=== PATIENT | female | born 1950 | race Caucasian/White ===

== ENCOUNTER → 2018-03-13 | Outpatient (CLI) | payer MEDICARE ==
[~2018-03-13] MED LIST: ABILIFY5 MG PO; AMLODIPINE BESY10 MG PO; CENTRUM SILVER1 EAC3 PO; CITRACAL + D E1 EACH PO; CLONAZEPAM1 MG PO; CYMBALTA60 MG PO; FENOFIBRATE134 MG PO; FISH OIL OMEGA1 EACH PO; FLAGYL250 MG PO; FUROSEMIDE20 MG PO; GLIMEPIRIDE4 MG PO; HUMALOG100 UNIT/1 SC; IOPAMIDOL 370 MG/ML 200 ML INFUS..BTL INJ ONE; LANTUS 3ML100 UNITS/ SC; LEVAQUIN500 MG PO; LEVOTHYROXINE50 MCG PO; LISINOPRIL-HCT1 EAC1 PO; LYRICA75 MG PO; METFORMIN HCL1000 M1 PO; METOPROLOL SUC100 MG PO; NORCO 10-325 T1 EACH PO; PRILOSEC OTC20 MG PO; PROBIOTIC COMP1 EACH PO; SODIUM CHLORIDE 0.9% 50ML 50 ML ONE; TIZANIDINE HCL4 M1 PO; TRAZODONE HCL100 MG PO; VICTOZA 2-0.6 MG/0.1 SC; XARELTO20 MG PO
[2018-03-13 09:10] LABS: BLOOD UREA NITROGEN 14 mg/dL (7-26); BUN/CREATININE RATIO 17 (6-25); CREATININE, SERUM 0.83 mg/dL (0.57-1.11); EST GLOMERULAR FILTRATION RATE > 60 ML/MIN (60-)
--- NOTE | 2018-03-13 14:21 | Diagnostic Imaging Report ---
PROCEDURE: CT ABDOMEN AND PELVIS WITH CONTRAST TECHNIQUE: The abdomen and pelvis were scanned utilizing a multidetector helical scanner from the diaphragm to the lesser trochanter after the IV administration of 100 cc Isovue 370 and the oral demonstration of water. Coronal and sagittal multiplanar reformations were obtained. COMPARISON: 04/04/2017. INDICATIONS: ABDOMEN PAIN FINDINGS: LOWER THORAX: Unchanged mild right hemidiaphragmatic elevation with atelectasis of the lower lobe.. HEPATOBILIARY: Hepatic parenchyma is diffusely hypoattenuating compatible with steatosis. No focal hepatic lesion or intrahepatic biliary ductal dilatation. Small radiopaque gallstones are again noted. No gallbladder wall thickening or pericholecystic inflammation. SPLEEN: Multiple calcified splenic granulomata. No splenomegaly. PANCREAS: No focal masses or ductal dilatation. ADRENALS: No adrenal nodules. KIDNEYS/URETERS: Subcentimeter hypoattenuating lesions in the left kidney are too small to further characterize but likely represent small cysts. No hydronephrosis or calculi. PELVIC ORGANS/BLADDER: Urinary bladder is unremarkable. Uterus and ovaries are nonvisualized. No adnexal mass. PERITONEUM / RETROPERITONEUM: No ascites or pneumoperitoneum. Evaluation of the pelvis is limited secondary to beam hardening artifact from patient contact with the scanning gantry due to body habitus. LYMPH NODES: No pelvic sidewall, retroperitoneal, or mesenteric lymphadenopathy. VESSELS: Abdominal aorta, major branch vessels, and iliac arterial systems are patent with mild atherosclerotic calcification. No aneurysmal dilatation. GI TRACT: The large bowel shows no evidence of distention or wall thickening. Gas and fecal material are noted throughout. The appendix is not definitively identified and may have been resected. No right lower quadrant inflammatory change. No small bowel dilatation to suggest obstruction. BONES AND SOFT TISSUES: No osseous destructive lesions. Multilevel degenerative disc changes and facet arthropathy of the lumbar spine. Soft tissue calcified injection granulomata along the right flank. Small fat-containing umbilical hernia. IMPRESSION: No acute intra-abdominal or pelvic CT abnormalities. Cholelithiasis without findings of acute cholecystitis. Hepatic steatosis. Dictated by: Davion Gates M.D. on 03/13/2018 at 10:47 Electronically approved by: Davion Gates M.D. on 03/13/2018 at 10:47
== END ==
LOC: CT 07:54
PROVIDERS: ATTEND Family Medicine
DX: R10.84 Generalized abdominal pain (principal)
CPT/HCPCS: 36415; 74177; 82565; 84520; Q9967

== ENCOUNTER 2019-04-16 13:39 | Emergency (ER) | payer MEDICARE ==
[~2019-04-16] VITALS: Ht 172.7 cm; Wt 158.8 kg
[~2019-04-16 13:39] MED LIST changes: -IOPAMIDOL 370 MG/ML 200 ML INFUS..BTL INJ ONE; -SODIUM CHLORIDE 0.9% 50ML 50 ML ONE
--- OUTSIDE RECORDS SUMMARY | 2019-04-16 13:43 | XMS REPORT | Clinical Summary ---
Author Author [facility] Address Unknown Phone Unavailable Care Team Providers Care Director [employer] Name Role Phone Flash Davis PCP Allergies Comments Active Allergy Reactions Severity Noted Date Penicillin G 02/23/2016 Benzathin,Procain Varenicline 02/23/2016 Medications End Date Status Medication Sig Dispensed Refills Start Date Active metoprolol (TOPROL-XL) Take 100 mg 0 100 MG 24 hr tablet by mouth daily. Active ARIPiprazole (ABILIFY) 2 Take 2 mg by 0 MG tablet mouth daily. Active metFORMIN (GLUCOPHAGE) Take 1,000 mg 0 1000 MG tablet by mouth 2 (two) times daily with breakfast and dinner. Active DULoxetine (CYMBALTA) 60 Take 60 mg by 0 MG capsule mouth daily. Active amLODIPine (NORVASC) 10 Take 10 mg by 0 MG tablet mouth daily. Active lisinopril-hydrochlorothi Take 1 tablet 0 azide by mouth (PRINZIDE,ZESTORETIC) daily. 20-25 mg per tablet Active fenofibrate (TRICOR) 145 Take 134 mg 0 MG tablet by mouth daily . Active pregabalin (LYRICA) 100 Take 100 mg 0 MG capsule by mouth 2 (two) times daily. Active traZODone (DESYREL) 100 Take 100 mg 0 MG tablet by mouth nightly. Active clonazePAM (KLONOPIN) 1 Take 1 mg by 0 MG tablet mouth 2 (two) times daily as needed for Anxiety. Active HYDROcodone-acetaminophen Take 1 tablet 0 (NORCO 10-325) 10-325 mg by mouth per tablet every 6 (six) hours as needed for Pain. Active TiZANidine (ZANAFLEX) 4 Take 4 mg by 0 MG capsule mouth 3 (three) times daily. Active insulin lispro (HUMALOG) Inject 0 100 unit/mL injection subcutaneousl y 3 (three) times daily before meals. Active insulin glargine (LANTUS) Inject 0 100 unit/mL injection subcutaneousl y nightly Use as directed . Active liraglutide 0.6 mg/0.1 mL Inject 0 (18 mg/3 mL) PnIj subcutaneousl y. Active furosemide (LASIX) 20 MG Take 20 mg by 0 tablet mouth 2 (two) times daily. Active rivaroxaban (XARELTO) 20 Take by mouth 0 mg Tab tablet daily. Active levothyroxine (SYNTHROID, Take 200 mcg 0 LEVOTHROID) 200 MCG by mouth tablet Every morning on an empty stomach. Active lidocaine (LIDODERM) 5 % Place 1 patch 0 patch onto the skin daily Remove & Discard patch within 12 hours or as directed by MD . Active Problems Problem Noted Date A-fib 02/23/2016 On continuous oral anticoagulation 02/23/2016 Chest pain 02/23/2016 DMII (diabetes mellitus, type 2) 02/23/2016 HTN (hypertension) 02/23/2016 Hypertriglyceridemia 02/23/2016 Family history of early CAD 02/23/2016 Depression 02/23/2016 Hypothyroidism 02/23/2016 Former smoker 02/23/2016 RAFA on CPAP 02/23/2016 Leg edema 02/23/2016 Morbid obesity 02/23/2016 GERD (gastroesophageal reflux disease) 02/23/2016 Degenerative joint disease 02/23/2016 Abnormal nuclear stress test 02/23/2016 Family History Medical History Relation Name Comments Cancer Father Hyperlipidemia Father Hypertension Father Depression Mother Diabetes Mother Relation Name Status Comments Father Mother Social History Date Tobacco Use Types Packs/Day Years Used Quit: 11/25/2012 Former Smoker Alcohol Use Drinks/Week oz/Week Comments Yes 1 Glasses of 0.6 occasionally wine Sex Assigned at Date Recorded Not on file Industry Job Start Date Occupation Not on file Not on file Not on file Travel End Travel History Travel Start No recent travel history available. Last Filed Vital Signs Not on file Plan of Treatment Not on file Results Not on fileafter 2018 Insurance Payer Benefit Subscriber ID Type Phone Address Plan / Group CARE IMPROVEMENT MEDICARE CARE xxxxxxxxx [facility]GD [facility] PL[facility] Advance Directives For more information, please contact: [address] [address] Date Inactivated Comments Code Status Date Activated 02/24/2016 8:50 PM Full Code 02/24/2016 10:08 AM This code status was determined by: Patient
--- OUTSIDE RECORDS SUMMARY | 2019-04-16 13:44 | XMS REPORT | Summary of Care ---
Author Author [facility] Organization [facility] Address Unknown Phone Unavailable Encounter JENNIFER Palacios(DAWIT) [id number] Date(s): 06/08/18 - 06/08/18 [facility] [address] [address]- [phone] Encounter Diagnosis Intervertebral disc disorders with radiculopathy, lumbar region (Final) - 06/25/18 Other spondylosis with radiculopathy, lumbosacral region (Final) - Other specific arthropathies, not elsewhere classified, other specified site (Final) - Type 2 diabetes mellitus without complications (Final) - Personal history of nicotine dependence (Final) - care home (current) use of insulin (Final) - Gastro-esophageal reflux disease without esophagitis (Final) - Obstructive sleep apnea (adult) (pediatric) (Final) - Essential (primary) hypertension (Final) - Unspecified atrial fibrillation (Final) - Hypothyroidism, unspecified (Final) - Discharge Disposition: Home or Self Care Attending Physician: Jarek Swenson MD Referring Physician: Jarek Swenson MD Vital Signs 1 2 3 Most recent to oldest [Reference Range]: 170.18 cm (06/05/18 1:48 PM) Height 124/67 mmHg (06/08/18 12:15 PM) 124/67 mmHg (06/08/18 12:00 PM) 139/77 mmHg (06/08/18 11:45 AM) Blood Pressure [90-140/60-90 mmHg] 20 BRMIN (06/08/18 12:15 PM) 18 BRMIN (06/08/18 12:00 PM) 16 BRMIN (06/08/18 11:45 AM) Respiratory Rate [14-20 BRMIN] 160 kg (06/05/18 1:48 PM) Weight 55.25 m2 (06/05/18 1:48 PM) Body Mass Index Problem List Condition Effective Dates Status Health Status Informant Afib(Confirmed) 12/2015 Active Diabetes(Confirmed) Active Hyperlipidemia(Confi Active rmed) Hypertension(Confirm Active ed) Hypothyroid(Confirme Active d) Obesity(Confirmed) Active Scoliosis(Confirmed) Active Sleep Active apnea(Confirmed) Allergies, Adverse Reactions, Alerts Substance Reaction Severity Status Bicillin L-A rash Active Chantix agitated Active Medications acetaminophen-10 mg/mL INTRAVENOUS solution 1,000 mg, 100 mL, Route: IV, Drug form: INJ, ONCE, Dosing Weight 160, kg, Start date: 06/08/18 11:46:00 STEM FRAZER, Stop date: 06/08/18 11:46:00 STEM FRAZER Notes: Infuse over 15 minutesDo not exceed 4gm/day of acetaminophen MEDICAT ION WASTE Product Size: 1000 mgProduct Wasted: ___ mg Start Date: 06/08/18 Stop Date: 06/19/18 Status: Discontinued acetaminophen-hydrocodone 325 mg-10 mg oral tablet 1 tab, Route: PO, Drug Form: TAB, Dosing Weight 160, kg, Q4H, PRN Pain Score 4-6 , Start date: 06/08/18 11:46:00 STEM FRAZER, Duration: 30 day, Stop date: 07/08/18 11:45 :00 STEM FRAZER Notes: Do not exceed 4gm/day of acetaminophen. (Same as: [place] 325/10) Start Date: 06/08/18 Stop Date: 06/09/18 Status: Discontinued hydromorphone 1 mg, 0.5 mL, Route: IVP, Drug form: INJ, PRN, Dosing Weight 160, kg, PRN Pain S core 7-10, Start date: 06/08/18 11:46:00 STEM FRAZER, Duration: 3 doses or times, Stop d ate: 06/09/18 0:00:00 STEM FRAZER Notes: Same as Dilaudid Start Date: 06/08/18 Stop Date: 06/09/18 Status: Completed hydromorphone 0.5 mg, 0.25 mL, Route: IVP, Drug form: INJ, PRN, Dosing Weight 160, kg, PRN Michael n Score 4-6, Start date: 06/08/18 11:46:00 STEM FRAZER, Duration: 6 doses or times, Stop date: 06/09/18 0:00:00 STEM FRAZER Notes: Same as Dilaudid Start Date: 06/08/18 Stop Date: 06/09/18 Status: Completed Lactated Ringers IV 1,000 mL 1,000 mL, Rate: 125 ml/hr, Infuse over: 8 hr, Route: IV, Dosing Weight 160 kg, T otal Volume: 1,000, Start date: 06/08/18 11:46:00 STEM FRAZER, Duration: 30 day, Stop da te: 07/08/18 11:45:00 STEM FRAZER, 2.8, m2 Start Date: 06/08/18 Stop Date: 06/08/18 Status: Discontinued Lactated Ringers IV 1,000 mL 1,000 mL, Rate: 125 ml/hr, Infuse over: 8 hr, Route: IV, Dosing Weight 160 kg, T otal Volume: 1,000, Start date: 06/08/18 10:47:00 STEM FRAZER, Duration: 30 day, Stop da te: 07/08/18 10:46:00 STEM FRAZER, 2.8, m2 Start Date: 06/08/18 Stop Date: 06/09/18 Status: Discontinued ondansetron 4 mg, 2 mL, Route: IVP, Drug form: INJ, ONCE, Dosing Weight 160, kg, PRN Nausea & Vomiting, Start date: 06/08/18 11:46:00 STEM FRAZER Notes: (Same as: Miki) MEDICATION WASTE Product Size: 4 mgProduct Was jef: ___ mg Start Date: 06/08/18 Stop Date: 06/09/18 Status: Discontinued Saline Flush 0.9% 10 ml, Route: IVP, Drug Form: INJ, Dosing Weight 160, kg, PRN, PRN Line Flush, S tart date: 06/08/18 10:47:00 STEM FRAZER, Duration: 30 day, Stop date: 07/08/18 10:46:00 STEM FRAZER Notes: Same as: BD Posiflush Sterile Start Date: 06/08/18 Stop Date: 06/09/18 Status: Discontinued Xarelto 20 mg oral tablet 20 mg=1 tab, PO, QPM, # 30 tab, 3 Refill(s) Start Date: 06/08/18 Status: Ordered Results No data available for this section Immunizations No data available for this section Procedures Procedure Date Related Diagnosis Body Site Status Repair of nerve1 2005 Completed Total knee replacement2 2004 Completed Total knee replacement3 2003 Completed Osteotomy and discectomy of cervical spine by 2000 Completed anterior approach Hysterectomy4 1984 Completed Bunionectomy5 Completed 1right first finger 2right 3left 4Partial 5left Social History Social History Type Response Substance Abuse Use: Current. Type: Marijuana. Recreational Drug Route: Inhaled. Amount: LAST TIME USED 06-07-2018. Frequency: Daily. Exercise 1 Alcohol Current, Type Wine. Frequency: 1-2 times per month. Smoking Status Former smoker; Type: Cigarettes; Exposure to Tobacco Smoke None; Cigarette Smoking Last 365 Days No; Reg Smoking Cessation Counseling No; Tobacco use per day: 20; Started at age: 20.0; 2 entered on: 06/08/18 1none 2quit 3 years Assessment and Plan Extracted from: Title: Clinical Document Author: Jarek Swenson MD Date: 06/08/18 HISTORY AND PHYSICAL EXAMINATION/REVIEW OF SYSTEMS Present Complaint:_bilateral low back buttock and leg pain Past History: chronic Alcohol Details: Current, Type Wine. Frequency: 1-2 times per month. Exercise Comment(s): none Tobacco Details: Use: Former smoker. Type: Cigarettes. 20 per day. Started age 20.0 Years. Tobacco smoke exposure: None. Did the Patient Smoke Cigarettes Anytime During the Last 365 Days? No. Cessation Counseling Provided? No.; Comment(s): quit 3 years Substance Abuse Details: Use: Current. Type: Marijuana. Amount: Last time used 12/17/2015. Frequency: Daily. Repair of nerve: 2006 Total knee replacement: 2004 Total knee replacement: 2003 Osteotomy and discectomy of cervical spine by anterior approach: 2000 Hysterectomy: 1984 Bunionectomy No qualifying data available Father: High blood pressure Mother: Type 2 diabetes mellitus Grandparent: Breast cancer; Heart disease Allergies Allergies (2) ActiveReaction Bicillin L-Perry Chantixagitated Home Medications: Home Medications (26) Active acetaminophen-hydrocodone 325 mg-10 mg oral tablet 1 tab, PO, Q6H amLODIPine 10 mg oral tablet 10 mg=1 tab, PO, Daily Centrum Silver Women's 1 tab, PO, Daily Citracal Maximum + D 2 tab, PO, BID clonazePAM 0.75 mg, PO, Bedtime clonazePAM 1 mg oral tablet 1 mg=1 tab, PO, QAM DULoxetine 60 mg oral delayed release capsule 120 mg=2 cap, PO, Daily fenofibrate 134 mg oral capsule 134 mg=1 cap, PO, Daily Fish Oil 1000 mg oral capsule 1,000 mg=1 cap, PO, TID FLUoxetine 20 mg oral capsule 20 mg=1 cap, PO, Daily furosemide 20 mg oral tablet 20 mg=1 tab, PRN, PO, Daily hydrochlorothiazide-lisinopril 25 mg-20 mg oral tablet 1 tab, PO, Daily Lantus 25 unit, SUB-Q, BID levothyroxine 200 mcg (0.2 mg) oral tablet 200 microgram=1 tab, PO, Daily Lidoderm 5% topical film (patch) 1 patch, TOP, Daily Lyrica 100 mg oral capsule 100 mg=1 cap, PO, BID metFORMIN 1000 mg oral tablet 1,000 mg=1 tab, PO, BID metoprolol 100 mg oral tablet, extended release 100 mg=1 tab, PO, Daily NovoLOG 0.5 unit, SUB-Q, TID-Before Meals Prilosec 20 mg oral delayed release capsule 20 mg=1 cap, PO, Daily Probiotic Formula oral capsule 1 cap, PO, Daily tizanidine 4 mg oral capsule 8 mg=2 cap, PO, QID trazodone 100 mg oral tablet 100 mg=1 tab, PO, Bedtime Victoza 18 mg/3 mL subcutaneous injection , SUB-Q, Daily Xarelto 20 mg oral tablet 20 mg=1 tab, PO, QPM Xarelto 20 mg oral tablet 20 mg=1 tab, PO, QPM Vitals Signs: No qualifying data available General(x_Alert, Oriented, No Acute Distress):_ Pertinent Lab:___none HEENT (_x no mass or deformity):_ Torso/Breast (_ no mass or deformity):_ deferred Heart (x_ normal Rhythm, no murmur or gallop):_ Lungs (_x Clear no auscultation):_ Abdomen (no mass or tenderness):_deferred Pelvic/Rectal (no mass or tenderness):_deferred Extremities (no edema or tenderness):_deferred Neurological (_ intact):_deferred Impressions: _ Diagnosis: -lumbar radiculopathy 44584 Treatment plan:_ bilateral L4-S1 TFESI
--- OUTSIDE RECORDS SUMMARY | 2019-04-16 13:44 | XMS REPORT | Summary of Care ---
Author Author [facility] Organization [facility] Address Unknown Phone Unavailable Encounter JENNIFER Palacios(DAWIT) [id number] Date(s): 04/25/18 - 04/25/18 [facility] [address] [address]- [phone] Encounter Diagnosis Type 2 diabetes mellitus without complications (Final) - Major depressive disorder, single episode, unspecified (Final) - Morbid (severe) obesity due to excess calories (Final) - Personal history of nicotine dependence (Final) - long term care administrator (current) use of anticoagulants (Final) - long term care administrator (current) use of insulin (Final) - long term care administrator (current) use of aspirin (Final) - Other half-way (current) drug therapy (Final) - Body mass index (BMI) 50-59.9, adult (Final) - Intervertebral disc disorders with radiculopathy, lumbar region (Final) - 05/04/18 Spondylosis without myelopathy or radiculopathy, lumbosacral region (Final) - Essential (primary) hypertension (Final) - Hyperlipidemia, unspecified (Final) - Obstructive sleep apnea (adult) (pediatric) (Final) - Unspecified atrial fibrillation (Final) - Hypothyroidism, unspecified (Final) - Discharge Disposition: Home or Self Care Attending Physician: Jarek Swenson MD Referring Physician: Jarek Swenson MD Vital Signs 1 2 3 Most recent to oldest [Reference Range]: 170.18 cm (04/20/18 10:17 AM) Height 121/56 mmHg (04/25/18 10:31 AM) 120/54 mmHg (04/25/18 10:16 AM) 121/87 mmHg (04/25/18 10:01 AM) Blood Pressure [90-140/60-90 mmHg] 16 BRMIN (04/25/18 10:31 AM) 15 BRMIN (04/25/18 10:16 AM) 15 BRMIN (04/25/18 10:01 AM) Respiratory Rate [14-20 BRMIN] 160 kg (04/20/18 10:17 AM) Weight 55.25 m2 (04/20/18 10:17 AM) Body Mass Index Problem List Condition Effective [...] ONCE, Dosing Weight 160, kg, Start date: 04/25/18 10:20:00 CDT, Stop date: 04/25/18 10:20:00 CDT Notes: Infuse over 15 minutesDo not exceed 4gm/day of acetaminophen MEDICAT ION WASTE Product Size: 1000 mgProduct Wasted: ___ mg Start Date: 04/25/18 Stop Date: 05/06/18 Status: Discontinued acetaminophen-hydrocodone 325 mg-10 mg oral tablet 1 tab, Route: PO, Drug Form: TAB, Dosing Weight 160, kg, Q4H, PRN Pain Score 4-6 , Start date: 04/25/18 10:20:00 CDT, Duration: 30 day, Stop date: 05/25/18 10:19 :00 CDT Notes: Do not exceed 4gm/day of acetaminophen. (Same as: [place] 325/10) Start Date: 04/25/18 Stop Date: 04/26/18 Status: Discontinued clonazePAM 0.75 mg, PO, Bedtime, 0 Refill(s) Start Date: 04/20/18 Status: Ordered FLUoxetine 20 mg oral capsule 20 mg=1 cap, PO, Daily, # 30 cap, 0 Refill(s) Start Date: 04/25/18 Status: Ordered hydromorphone 0.5 mg, 0.25 mL, Route: IVP, Drug form: INJ, PRN, Dosing Weight 160, kg, PRN Michael n Score 4-6, Start date: 04/25/18 10:20:00 CDT, Duration: 30 day, Stop date: 09/10 10:19:00 CDT Notes: Same as Dilaudid Start Date: 04/25/18 Stop Date: 04/26/18 Status: Discontinued hydromorphone 1 mg, 0.5 mL, Route: IVP, Drug form: INJ, PRN, Dosing Weight 160, kg, PRN Pain S core 7-10, Start date: 04/25/18 10:20:00 CDT, Duration: 30 day, Stop date: 05/25 10:19:00 CDT Notes: Same as Dilaudid Start Date: 04/25/18 Stop Date: 04/26/18 Status: Discontinued Lactated Ringers IV 1,000 mL 1,000 mL, Rate: 125 ml/hr, Infuse over: 8 hr, Route: IV, Dosing Weight 160 kg, T otal Volume: 1,000, Start date: 04/25/18 10:20:00 CDT, Duration: 30 day, Stop da te: 05/25/18 10:19:00 CDT, 2.8, m2 Start Date: 04/25/18 Stop Date: 04/26/18 Status: Discontinued Lactated Ringers IV 1,000 mL 1,000 mL, Rate: 125 ml/hr, Infuse over: 8 hr, Route: IV, Dosing Weight 160 kg, T otal Volume: 1,000, Start date: 04/25/18 9:04:00 CDT, Duration: 30 day, Stop sneha e: 05/25/18 9:03:00 CDT, 2.8, m2 Start Date: 04/25/18 Stop Date: 04/25/18 Status: Discontinued ondansetron 4 mg, 2 mL, Route: IVP, Drug form: INJ, ONCE, Dosing Weight 160, kg, Start date: 04/25/18 10:20:00 CDT, Stop date: 04/25/18 10:20:00 CDT, .. Notes: (Same as: Miki) MEDICATION WASTE Product Size: 4 mgProduct Was jef: ___ mg Start Date: 04/25/18 Stop Date: 05/06/18 Status: Discontinued ondansetron 4 mg, 2 mL, Route: IVP, Drug form: INJ, ONCE, Dosing Weight 160, kg, PRN Nausea & Vomiting, Start date: 04/25/18 10:20:00 CDT Notes: (Same as: Miki) MEDICATION WASTE Product Size: 4 mgProduct Was jef: ___ mg Start Date: 04/25/18 Stop Date: 04/26/18 Status: Discontinued Saline Flush 0.9% 10 ml, Route: IVP, Drug Form: INJ, Dosing Weight 160, kg, PRN, PRN Line Flush, S tart date: 04/25/18 9:04:00 CDT, Duration: 30 day, Stop date: 05/25/18 9:03:00 C DT Notes: Same as: BD Posiflush Sterile Start Date: 04/25/18 Stop Date: 04/26/18 Status: Discontinued Xarelto 20 mg oral tablet 20 mg=1 tab, PO, QPM, # 30 tab, 3 Refill(s) Start Date: 04/25/18 Status: Ordered Results No data available for [...] Clinical Document Author: Jarek Swenson MD Date: 04/25/18 HISTORY AND PHYSICAL EXAMINATION/REVIEW OF SYSTEMS Present Complaint:_bilat low back buttock and leg pain Past History:chronic Alcohol Details: Current, Type Wine. Frequency: 1-2 [...] used 12/17/2015. Frequency: Daily. Repair of nerve: 2005 Total knee replacement: 2004 Total knee replacement: 2003 Osteotomy and discectomy of cervical spine by anterior approach: 2000 Hysterectomy: 1984 Bunionectomy No qualifying data available Father: High blood pressure Mother: Type 2 diabetes mellitus Grandparent: Breast cancer; Heart disease Allergies Allergies (2) ActiveReaction Bicillin L-Perry Chantixagitated Home Medications: Home Medications (25) Active acetaminophen-hydrocodone 325 mg-10 mg oral tablet [...] QPM Vitals Signs: No qualifying data available General(_xAlert, Oriented, No Acute Distress):_ Pertinent Lab:_110__ HEENT (_x no mass or deformity):_ Torso/Breast (_ no mass or deformity):_ deferred Heart (_x normal Rhythm, no murmur or gallop):_ Lungs (_x Abdomen (no mass or tenderness):_deferred Pelvic/Rectal (no mass or tenderness):_deferred Extremities (no edema or tenderness):_deferred Neurological (_ intact):_deferred Impressions: _ Diagnosis: -lumbosacral spondylosis [id number] -lumbar disc degeneration [id number] -lumbar radiculopathy 25580 -lumbago 1783 Treatment plan:_ bialteral L4-5,L5-S1 TFESI
--- OUTSIDE RECORDS SUMMARY | 2019-04-16 13:44 | XMS REPORT | Summary of Care ---
Author Author [facility] Organization [facility] Address Unknown Phone Unavailable Encounter JENNIFER Palacios(DAWIT) [phone] Date(s): 03/18/16 - 03/18/16 [facility] [address] [place] [phone]- [phone] Discharge Disposition: Home or Self Care Attending Physician: Jarek Swenson MD Referring Physician: Jarek Swenson MD Vital Signs 1 2 3 Most recent to oldest [Reference Range]: 170.18 cm (03/18/16 1:21 PM) 167.64 cm (03/12/16 11:21 AM) Height 98.7 DegF (03/18/16 1:21 PM) Temperature Oral [96.4-99.1 DegF] 140/74 mmHg (03/18/16 3:17 PM) 108/66 mmHg (03/18/16 2:59 PM) 125/57 mmHg (03/18/16 2:54 PM) Blood Pressure [90-140/60-90 mmHg] 18 BRMIN (03/18/16 3:17 PM) 16 BRMIN (03/18/16 2:59 PM) 16 BRMIN (03/18/16 2:54 PM) Respiratory Rate [14-20 BRMIN] 70 bpm (03/18/16 3:17 PM) Peripheral Pulse Rate [60-100 bpm] 159.091 kg (03/18/16 1:21 PM) 159.091 kg (03/12/16 11:21 AM) Weight 54.93 m2 (03/18/16 1:21 PM) 56.61 m2 (03/12/16 11:21 AM) Body Mass Index Problem List Condition Effective Dates Status Health Status Informant Afib(Confirmed) 12/2015 Active Depression(Confirmed Active ) Diabetes(Confirmed) Active Hyperlipidemia(Confi Active rmed) Hypertension(Confirm Active ed) Hypothyroid(Confirme Active d) Obesity(Confirmed) Active Scoliosis(Confirmed) Active Sleep Active apnea(Confirmed) Allergies, Adverse Reactions, Alerts Substance Reaction Severity Status Bicillin L-A rash Active Chantix agitated Active Medications acetaminophen-hydrocodone 325 mg-10 mg oral tablet 1 tab, Route: PO, Drug Form: TAB, Dosing Weight 159.091, kg, Q4H, PRN Pain Score 4-6, Start date: 03/18/16 14:46:00 CDT, Duration: 30 day, Stop date: 04/17/16 1 4:45:00 CDT Notes: Do not exceed 4gm/day of acetaminophen. (Same as: Borger 325/10) Start Date: 03/18/16 Stop Date: 03/19/16 Status: Discontinued ANES flumazenil 0.2 mg, 2 mL, Route: IVP, Drug form: INJ, PRN, Dosing Weight 159.091, kg, PRN Be nzodiazepine Reversal, Initial dose, Start date: 03/18/16 13:29:00 CDT, Stop sneha e: 03/18/16 21:00:00 CDT Notes: (Same as: Romazicon) Start Date: 03/18/16 Stop Date: 03/18/16 Status: Discontinued ANES naloxone 0.4 mg, 1 mL, Route: IVP, Drug form: INJ, Q2MIN, Dosing Weight 159.091, kg, PRN Narcotic Reversal, Start date: 03/18/16 13:29:00 CDT, Duration: 8 doses or times , Stop date: 03/18/16 21:00:00 CDT Notes: Same as Narcan Start Date: 03/18/16 Stop Date: 03/18/16 Status: Discontinued ANES ondansetron 4 mg, 2 mL, Route: IVP, Drug form: INJ, ONCE, Dosing Weight 159.091, kg, PRN Don sea & Vomiting, Start date: 03/18/16 13:29:00 CDT Notes: (Same as: Zotony) MEDICATION WASTE Product Size: 4 mgProduct Was jef: ___ mg Start Date: 03/18/16 Stop Date: 03/18/16 Status: Discontinued ANES oxyCODONE 5 mg, 1 tab, Route: PO, Drug form: TAB, Q4H, Dosing Weight 159.091, kg, PRN Pain Score 4-6, Start date: 03/18/16 13:29:00 CDT, Stop date: 03/18/16 21:00:00 CDT Notes: (Same as: Roxicodone) Start Date: 03/18/16 Stop Date: 03/18/16 Status: Discontinued hydromorphone 1 mg, 0.5 mL, Route: IVP, Drug form: INJ, PRN, Dosing Weight 159.091, kg, PRN Pa in Score 7-10, Start date: 03/18/16 14:46:00 CDT, Duration: 30 day, Stop date: 0 04/17/16 14:45:00 CDT Notes: Same as Dilaudid Start Date: 03/18/16 Stop Date: 03/19/16 Status: Discontinued hydromorphone 0.5 mg, 0.25 mL, Route: IVP, Drug form: INJ, PRN, Dosing Weight 159.091, kg, PRN Pain Score 4-6, Start date: 03/18/16 14:46:00 CDT, Stop date: 04/17/16 14:45:00 CDT Notes: Same as Dilaudid Start Date: 03/18/16 Stop Date: 03/19/16 Status: Discontinued Lactated Ringers 1,000 mL 1,000 mL, Rate: 125 ml/hr, Infuse over: 8 hr, Route: IV, Dosing Weight 159.091 k g, Total Volume: 1,000, Start date: 03/18/16 14:46:00 CDT, Duration: 30 day, Sto p date: 04/17/16 14:45:00 CDT Start Date: 03/18/16 Stop Date: 03/19/16 Status: Discontinued Lactated Ringers 1,000 mL 1,000 mL, Rate: 125 ml/hr, Infuse over: 8 hr, Route: IV, Dosing Weight 159.091 k g, Total Volume: 1,000, Start date: 03/18/16 13:26:00 CDT, Duration: 30 day, Sto p date: 04/17/16 13:25:00 CDT Start Date: 03/18/16 Stop Date: 03/19/16 Status: Discontinued ondansetron 4 mg, 2 mL, Route: IVP, Drug form: INJ, ONCE, Dosing Weight 159.091, kg, PRN Don sea & Vomiting, Start date: 03/18/16 14:46:00 CDT Notes: (Same as: Zofran) MEDICATION WASTE Product Size: 4 mgProduct Was jef: ___ mg Start Date: 03/18/16 Stop Date: 03/19/16 Status: Discontinued promethazine 12.5 mg, 0.5 mL, Route: IVPB, Drug form: INJ, Q4H, Dosing Weight 159.091, kg, ME N Nausea & Vomiting, Start date: 03/18/16 14:46:00 CDT, Duration: 30 day, Stop date: 04/17/16 14:45:00 CDT Notes: Do not give IV push. (Same as: Phenergan) Start Date: 03/18/16 Stop Date: 03/19/16 Status: Discontinued Saline Flush 0.9% 10 ml, Route: IVP, Drug Form: INJ, Dosing Weight 159.091, kg, PRN, PRN Line Flus h, Start date: 03/18/16 14:46:00 CDT, Duration: 30 day, Stop date: 04/17/16 14:4 5:00 CDT Notes: Same as: BD Posiflush Sterile Start Date: 03/18/16 Stop Date: 03/19/16 Status: Discontinued Xarelto PO, 0 Refill(s) Start Date: 03/18/16 Status: Ordered Xarelto 20 mg oral tablet 20 mg=1 tab, PO, QPM, # 30 tab, 3 Refill(s) Start Date: 03/18/16 Status: Ordered Results No data available for this section Immunizations No data available for this section Procedures Procedure Date Related Diagnosis Body Site Repair of nerve1 2005 Total knee replacement2 2004 Total knee replacement3 2003 Osteotomy and discectomy of cervical spine by 2000 anterior approach Hysterectomy4 1985 Bunionectomy5 1right first finger 2right 3left 4Partial 5left Social History Social History Type Response Substance Abuse Use: Current. Type: Marijuana. Amount: Last time used 12/17/2015. Frequency: Daily. Exercise 1 Alcohol Current, Type Wine. Frequency: 1-2 times per month. Smoking Status Former smoker; Type: Cigarettes; Tobacco use per day: 20; Started at age: 20.0; Exposure to Tobacco Smoke None; Cigarette Smoking Last 365 Days No; Reg Smoking Cessation Counseling No2 1none 2quit 3 years Assessment and Plan Extracted from: Title: Clinical Document Author: Jarek Swenson MD Date: 03/18/16 History and Physical Update (1. Required on all H&P'S completed prior to admission, within last 30 days. 2. Update must be completed post admission, within 24 hrs or prior to procedure, whichever comes first.) _ No change in patient's current condition _ Time Date _ Condition Changes noted and documented below: HISTORY AND PHYSICAL EXAMINATION/REVIEW OF SYSTEMS Present Complaint:_bilateral low back buttock pain Past History:chronic Alcohol Details: Current, Type [...] Bicillin L-Perry Chantixagitated Home Medications: Home Medications (23) Active Abilify 2 mg oral tablet 2 mg=1 tab, PO, Daily acetaminophen-hydrocodone 325 mg-10 mg oral tablet 1 tab, PO, Q6H amLODIPine 10 mg oral tablet 10 mg=1 tab, PO, Daily Centrum Silver Women's 1 tab, PO, Daily Citracal Maximum + D 2 tab, PO, BID clonazePAM 1 mg oral tablet 1 mg=1 tab, PO, BID DULoxetine 60 mg oral delayed release capsule 120 mg=2 cap, PO, Daily fenofibrate 134 mg oral capsule 134 mg=1 cap, PO, Daily Fish Oil 1000 mg oral capsule 1,000 mg=1 cap, PO, TID furosemide 20 mg oral tablet 20 mg=1 [...] mg/3 mL subcutaneous injection , SUB-Q, Daily Vitals Signs: No qualifying data available General(_xAlert, Oriented, No Acute Distress):_ Pertinent Lab:___109 glucose HEENT (x_ no mass or deformity):_ Torso/Breast (_ no mass or deformity):_ deferred Heart (_x normal Rhythm, no murmur or gallop):_ Lungs (_x Clear no auscultation):_ Abdomen (no mass or tenderness):_deferred Pelvic/Rectal (no mass or tenderness):_deferred Extremities (no edema or tenderness):_deferred Neurological (_ intact):_deferred Impressions: _ Diagnosis: -lumbar disc degeneration [id number] -lumbar radiculopathy [id number] Treatment plan:_ bilateral L3-S1 TFESI
--- OUTSIDE RECORDS SUMMARY | 2019-04-16 13:44 | XMS REPORT | Continuity of Care Document ---
Author Author [employer] Organization [facility] [employer] Address Unknown Phone Unavailable Care Team Providers Care Enzyme Chemist Name Role Phone [facility] [employer] Unavailable Unavailable Problems Problem Status Onset Date Classification Date Reported Comments Source Intervertebral disc disorders with radiculopathy, lumbar region 06/26/2018 12/27/2018 [facility] RADICULOPATHY Active 06/04/2018 [facility] Atrial fibrillation (disorder) Active 12/23/2015 Problem 12/27/2018 [facility] LUMBAR RADICULOPATHY Active 12/18/2015 [facility] Depression - motion (qualifier value) Active Problem 03/21/2016 [facility] Diabetes mellitus (disorder) Active Problem 12/27/2018 [facility] Hyperlipidemia (disorder) Active Problem 12/27/2018 [facility] Hypertensive disorder, systemic arterial (disorder) Active Problem 12/27/2018 [facility] Hypothyroidism (disorder) Active Problem 12/27/2018 [facility] Obesity (disorder) Active Problem 12/27/2018 [facility] Scoliosis deformity of spine (disorder) Active Problem 12/27/2018 [facility] Sleep apnea (finding) Active Problem 12/27/2018 [facility] Other spondylosis with radiculopathy, lumbosacral region 12/27/2018 [facility] Other specific arthropathies, not elsewhere classified, vertebrae 12/27/2018 [facility] Type 2 diabetes mellitus without complications 12/27/2018 [facility] Personal history of nicotine dependence 12/27/2018 [facility] alf (current) use of insulin 12/27/2018 [facility] Gastro-esophageal reflux disease without esophagitis 12/27/2018 [facility] Obstructive sleep apnea (adult) (pediatric) 12/27/2018 [facility] Essential (primary) hypertension 12/27/2018 [facility] Unspecified atrial fibrillation 12/27/2018 [facility] Hypothyroidism, unspecified 12/27/2018 [facility] Major depressive disorder, single episode, unspecified 11/12/2018 [facility] Morbid (severe) obesity due to excess calories 11/12/2018 [facility] alf (current) use of anticoagulants 11/12/2018 [facility] alf (current) use of aspirin 11/12/2018 [facility] Other penitentiary (current) drug therapy 11/12/2018 [facility] Body mass index (BMI) 50-59.9 , adult 11/12/2018 [facility] Spondylosis without myelopathy or radiculopathy, lumbosacral region 11/12/2018 [facility] Hyperlipidemia, unspecified 11/12/2018 [facility] Medications Medication Details Route Status Patient Instructions Ordering Provider Order Date Source Lactated Ringers IV 1,000 mL 1,000 mL, Rate: 125 ml/hr, Infuse over: 8 hr, Route: IV, Dosing Weight 160 kg, Total Volume: 1,000, Start date: 06/08/18 11:46:00 [employer] MANAGER, Duration: 30 day, Stop date: 07/08/18 11:45:00 [employer] INCOME [employer] MANAGER, 2.8, m2 Inactive 06/08/2018 [facility] Acetaminophen 10 MG/ML Injectable Solution 1,000 mg, 100 mL, Route: IV, Drug form: INJ, ONCE, Dosing Weight 160, kg, Start date: 06/08/18 11:46:00 [employer] INCOME [employer] MANAGER, Stop date: 06/08/18 11:46:00 CSTNotes: Infuse over 15 minutes Do not exceed 4gm/day of acetaminophen MEDICATION WASTE Product Size: 1000 mg Product Wasted: ___ mg No Longer Active 06/08/2018 [facility] Ondansetron 4 mg, 2 mL, Route: IVP, Drug form: INJ, ONCE, Dosing Weight 160, kg, PRN Nausea & Vomiting, Start date: 06/08/18 11:46:00 CSTNotes: (Same as: Zofran) MEDICATION WASTE Product Size: 4 mg Pr oduct Wasted: ___ mg No Longer Active 06/08/2018 [facility] Hydromorphone 1 mg, 0.5 mL, Route: IVP, Drug form: INJ, PRN, Dosing Weight 160, kg, PRN Pain Score 7-10, Start date: 06/08/18 11:46:00 [employer] INCOME [employer] MANAGER, Duration: 3 doses or times, Stop date: 06/09/18 0:00:00 CSTNotes: Same as Dilaudid No Longer Active 06/08/2018 [facility] Acetaminophen 325 MG / Hydrocodone Bitartrate 10 MG Oral Tablet 1 tab, Route: PO, Drug Form: TAB, Dosing Weight 160, kg, Q4H, PRN Pain Score 4-6, Start date: 06/08/18 11:46:00 [employer] INCOME [employer] MANAGER, Duration: 30 day, Stop date: 07/08/18 11:45:00 CSTNotes: Do not exceed 4gm/day of acetaminophen. (Same as: [place] 325/10) No Longer Active 06/08/2018 [facility] rivaroxaban 20 MG Oral Tablet [Xarelto] 20 mg=1 tab, PO, QPM, # 30 tab, 3 Refill(s) Active 06/08/2018 [facility] Saline Flush 0.9% 10 ml, Route: IVP, Drug Form: INJ, Dosing Weight 160, kg, PRN, PRN Line Flush, Start date: 06/08/18 10:47:00 [employer] INCOME [employer] MANAGER, Duration: 30 day, Stop date: 07/08/18 10:46:00 CSTNotes: Same as: BD Posiflush Sterile No Longer Active 06/08/2018 [facility] Lactated Ringers IV 1,000 mL 1,000 mL, Rate: 125 ml/hr, Infuse over: 8 hr, Route: IV, Dosing Weight 160 kg, Total Volume: 1,000, Start date: 06/08/18 10:47:00 [employer] INCOME [employer] MANAGER, Duration: 30 day, Stop date: 07/08/18 10:46:00 [employer] INCOME [employer]IO MANAGER, 2.8, m2 No Longer Active 06/08/2018 [facility] Ondansetron 4 mg, 2 mL, Route: IVP, Drug form: INJ, ONCE, Dosing Weight 160, kg, Start date: 04/25/18 10:20:00 CDT, Stop date: 04/25/18 10:20:00 CDT, ..Notes: (Same as: Miki) MEDICATION WASTE Product Size: 4 mg Product Wasted: ___ mg No Longer Active 04/25/2018 [facility] Lactated Ringers IV 1,000 mL 1,000 mL, Rate: 125 ml/hr, Infuse over: 8 hr, Route: IV, Dosing Weight 160 kg, Total Volume: 1,000, Start date: 04/25/18 10:20:00 CDT, Duration: 30 day, Stop date: 05/25/18 10:19:00 CDT, 2.8, m2 No Longer Active 04/25/2018 [facility] Hydromorphone 0.5 mg, 0.25 mL, Route: IVP, Drug form: INJ, PRN, Dosing Weight 160, kg, PRN Pain Score 4-6, Start date: 04/25/18 10:20:00 CDT, Duration: 30 day, Stop date: 05/25/18 10:19:00 CDTNotes: Same as Dilaudid No Longer Active 04/25/2018 [facility] Acetaminophen 10 MG/ML Injectable Solution 1,000 mg, 100 mL, Route: IV, Drug form: INJ, ONCE, Dosing Weight 160, kg, Start date: 04/25/18 10:20:00 CDT, Stop date: 04/25/18 10:20:00 CDTNotes: Infuse over 15 minutes Do not exceed 4gm/day of acetaminophen MEDICATION WASTE Product Size: 1000 mg Product Wasted: ___ mg No Longer Active 04/25/2018 [facility] Acetaminophen 325 MG / Hydrocodone Bitartrate 10 MG Oral Tablet 1 tab, Route: PO, Drug Form: TAB, Dosing Weight 160, kg, Q4H, PRN Pain Score 4-6, Start date: 04/25/18 10:20:00 CDT, Duration: 30 day, Stop date: 05/25/18 10:19:00 CDTNotes: Do not exceed 4gm/day of acetaminophen. (Same as: [place] 325/10) No Longer Active 04/25/2018 [facility] rivaroxaban 20 MG Oral Tablet [Xarelto] 20 mg=1 tab, PO, QPM, # 30 tab, 3 Refill(s) Active 04/25/2018 [facility] FLUoxetine 20 mg oral capsule 20 mg=1 cap, PO, Daily, # 30 cap, 0 Refill(s) Active 04/25/2018 [facility] Saline Flush 0.9% 10 ml, Route: IVP, Drug Form: INJ, Dosing Weight 160, kg, PRN, PRN Line Flush, Start date: 04/25/18 9:04:00 CDT, Duration: 30 day, Stop date: 05/25/18 9:03:00 CDTNotes: Same as: BD Posiflush Sterile No Longer Active 04/25/2018 [facility] Lactated Ringers IV 1,000 mL 1,000 mL, Rate: 125 ml/hr, Infuse over: 8 hr, Route: IV, Dosing Weight 160 kg, Total Volume: 1,000, Start date: 04/25/18 9:04:00 CDT, Duration: 30 day, Stop date: 05/25/18 9:03:00 CDT, 2.8, m2 Inactive 04/25/2018 [facility] Clonazepam 0.75 mg, PO, Bedtime, 0 Refill(s) Active 04/20/2018 [facility] Saline Flush 0.9% 10 ml, Route: IVP, Drug Form: INJ, Dosing Weight 159.091, kg, PRN, PRN Line Flush, Start date: 03/18/16 14:46:00 CDT, Duration: 30 day, Stop date: 04/17/16 14:45:00 CDTNotes: Same as: BD Posiflush Sterile No Longer Active 03/18/2016 [facility] Lactated Ringers 1,000 mL 1,000 mL, Rate: 125 ml/hr, Infuse over: 8 hr, Route: IV, Dosing Weight 159.091 kg, Total Volume: 1,000, Start date: 03/18/16 14:46:00 CDT, Duration: 30 day, Stop date: 04/17/16 14:45:00 CDT No Longer Active 03/18/2016 [facility] Promethazine 12.5 mg, 0.5 mL, Route: IVPB, Drug form: INJ, Q4H, Dosing Weight 159.091, kg, PRN Nausea & Vomiting, Start date: 03/18/16 14:46:00 CDT, Duration: 30 day, Stop date: 04/17/16 14:45:00 CDTNotes: Do not give IV push. (Same as: Phenergan) No Longer Active 03/18/2016 [facility] Hydromorphone 1 mg, 0.5 mL, Route: IVP, Drug form: INJ, PRN, Dosing Weight 159.091, kg, PRN Pain Score 7-10, Start date: 03/18/16 14:46:00 CDT, Duration: 30 day, Stop date: 04/17/16 14:45:00 CDTNotes: Same as Dilaudid No Longer Active 03/18/2016 [facility] Ondansetron 4 mg, 2 mL, Route: IVP, Drug form: INJ, ONCE, Dosing Weight 159.091, kg, PRN Nausea & Vomiting, Start date: 03/18/16 14:46:00 CDTNotes: (Same as: Zofran) MEDICATION WASTE Product Size: 4 mg Product Wasted: ___ mg No Longer Active 03/18/2016 [facility] Acetaminophen 325 MG / Hydrocodone Bitartrate 10 MG Oral Tablet 1 tab, Route: PO, Drug Form: TAB, Dosing Weight 159.091, kg, Q4H, PRN Pain Score 4-6, Start date: 03/18/16 14:46:00 CDT, Duration: 30 day, Stop date: 04/17/16 14:45:00 CDTNotes: Do not exceed 4gm/day of acetaminophen. (Same as: [place] 325/10) No Longer Active 03/18/2016 [facility] rivaroxaban 20 MG Oral Tablet [Xarelto] 20 mg=1 tab, PO, QPM, # 30 tab, 3 Refill(s) Active 03/18/2016 [facility] Xarelto PO, 0 Refill(s) Active 03/18/2016 [facility] Ondansetron 4 mg, 2 mL, Route: IVP, Drug form: INJ, ONCE, Dosing Weight 159.091, kg, PRN Nausea & Vomiting, Start date: 03/18/16 13:29:00 CDTNotes: (Same as: Zofran) MEDICATION WASTE Product Size: 4 mg Product Wasted: ___ mg Inactive 03/18/2016 [facility] Oxycodone 5 mg, 1 tab, Route: PO, Drug form: TAB, Q4H, Dosing Weight 159.091, kg, PRN Pain Score 4-6, Start date: 03/18/16 13:29:00 CDT, Stop date: 03/18/16 21:00:00 CDTNotes: (Same as: Roxicodone) Inactive 03/18/2016 [facility] Naloxone 0.4 mg, 1 mL, Route: IVP, Drug form: INJ, Q2MIN, Dosing Weight 159.091, kg, PRN Narcotic Reversal, Start date: 03/18/16 13:29:00 CDT, Duration: 8 doses or times, Stop date: 03/18/16 21:00:00 CDTNotes: Same as Narcan Inactive 03/18/2016 [facility] Flumazenil 0.2 mg, 2 mL, Route: IVP, Drug form: INJ, PRN, Dosing Weight 159.091, kg, PRN Benzodiazepine Reversal, Initial dose, Start date: 03/18/16 13:29:00 CDT, Stop date: 03/18/16 21:00:00 CDTNotes: (Same as: Romazicon) Inactive 03/18/2016 [facility] Lactated Ringers 1,000 mL 1,000 mL, Rate: 125 ml/hr, Infuse over: 8 hr, Route: IV, Dosing Weight 159.091 kg, Total Volume: 1,000, Start date: 03/18/16 13:26:00 CDT, Duration: 30 day, Stop date: 04/17/16 13:25:00 CDT No Longer Active 03/18/2016 [facility] Dextrose 50% Syringe 12.5 gm, Route: IVP, Dosing Weight 160.625, kg, ONCE, Start date: 12/24/15 12:09:00 CDT, Stop date: 12/24/15 12:09:00 CDT Inactive 12/24/2015 [facility] Centrum Silver Women's 1 tab, PO, Daily, 0 Refill(s) Active 12/18/2015 [facility] Probiotic Formula oral capsule 1 cap, PO, Daily, 0 Refill(s) Active 12/18/2015 [facility] Fish Oil 1000 mg oral capsule 1,000 mg=1 cap, PO, TID, 0 Refill(s) Active 12/18/2015 [facility] Citracal Maximum + D 2 tab, PO, BID, 0 Refill(s) Active 12/18/2015 [facility] Omeprazole 20 MG Enteric Coated Capsule [Prilosec] 20 mg=1 cap, PO, Daily, 0 Refill(s) Active 12/18/2015 [facility] Lidocaine Hydrochloride 0.05 MG/MG Transdermal Patch [Lidoderm] 1 patch, TOP, Daily, 0 Refill(s) Active 12/18/2015 [facility] levothyroxine 200 mcg (0.2 mg) oral tablet 200 microgram=1 tab, PO, Daily, 0 Refill(s) Active 12/18/2015 [facility] 3 ML liraglutide 6 MG/ML Prefilled Syringe [Victoza] SUB- Q, Daily, 0 Refill(s) Active 12/18/2015 [facility] Lantus 25 unit, SUB-Q, BID, 0 Refill(s) Active 12/18/2015 [facility] Furosemide 20 MG Oral Tablet 20 mg=1 tab, PO, Daily, PRN swelling, 0 Refill(s) Active 12/18/2015 [facility] NovoLog 0.5 unit, SUB-Q, TID-Before Meals, 0 Refill(s) Active 12/18/2015 [facility] tizanidine 4 mg oral capsule 8 mg=2 cap, PO, QID, 0 Refill(s) Active 12/18/2015 [facility] Acetaminophen 325 MG / Hydrocodone Bitartrate 10 MG Oral Tablet 1 tab, PO, Q6H, 0 Refill(s) Active 12/18/2015 [facility] clonazePAM 1 mg oral tablet 1 mg=1 tab, PO, BID, 0 Refill(s) Active 12/18/2015 [facility] Trazodone Hydrochloride 100 MG Oral Tablet 100 mg=1 tab, PO, Bedtime, 0 Refill(s) Active 12/18/2015 [facility] pregabalin 100 MG Oral Capsule [Lyrica] 100 mg=1 cap, PO, BID, 0 Refill(s) Active 12/18/2015 [facility] Fenofibrate 134 MG Oral Capsule 134 mg=1 cap, PO, Daily, 0 Refill(s) Active 12/18/2015 [facility] DULoxetine 60 mg oral delayed release capsule 120 mg=2 cap, PO, Daily, 0 Refill(s) Active 12/18/2015 [facility] Hydrochlorothiazide 25 MG / Lisinopril 20 MG Oral Tablet 1 tab, PO, Daily, 0 Refill(s) Active 12/18/2015 [facility] amLODIPine 10 mg oral tablet 10 mg=1 tab, PO, Daily, 0 Refill(s) Active 12/18/2015 [facility] Metformin hydrochloride 1000 MG Oral Tablet 1,000 mg=1 tab, PO, BID, 0 Refill(s) Active 12/18/2015 [facility] aripiprazole 2 MG Oral Tablet [Abilify] 2 mg=1 tab, PO, Daily, 0 Refill(s) Active 12/18/2015 [facility] metoprolol 100 mg oral tablet, extended release 100 mg=1 tab, PO, Daily, 0 Refill(s) Active 12/18/2015 [facility] Allergies, Adverse Reactions, Alerts Substance Category Reaction Severity Reaction type Status Date Reported Comments Source Bicillin L-A Assertion rash Drug allergy Active [facility] Chantix Assertion agitated Drug allergy Active [facility] Immunizations No Data Provided for This Section Results No Data Provided for This Section Pathology Reports No Data Provided for This Section Diagnostic Reports Report Value Date Source Fluoroscopy assist to 1 hour DX DATE: 03/18/2016 INDICATION: bilateral L3-S1 GERALD lumbar stenosis, lumbar disc degeneration, lumbar radiculopathy COMPARISON: None available. FINDINGS: Series images demonstrates needle placement into both L3-L4 L4-L5 and L5-S1 neural foramen. Contrast outlines both L3, L4 and L5 nerve root sleeves and passes retrograde epidural space extending cephalad to L2 and caudad to S1. Fluoroscopy time was 3 minutes 1 2nd and dose was 107.43 mGy. IMPRESSION: 1. Bilateral L3-L4 through L5-S1 transforaminal contrast injections have been performed. 2. Epidurogram shows cephalad flow to L2 and caudad flow to S1 03/18/2016 [facility] Consultation Notes No Data Provided for This Section Discharge Summaries No Data Provided for This Section History and Physicals No Data Provided for This Section Vital Signs Vital Sign Value Date Comments Source Respitory Rate 20 06/08/2018 [facility] Systolic (mm Hg) 124 06/08/2018 [facility] Diastolic (mm Hg) 67 06/08/2018 [facility] Systolic (mm Hg) 124 06/08/2018 [facility] Diastolic (mm Hg) 67 06/08/2018 [facility] Respitory Rate 18 06/08/2018 [facility] Respitory Rate 16 06/08/2018 [facility] Systolic (mm Hg) 139 06/08/2018 [facility] Diastolic (mm Hg) 77 06/08/2018 [facility] Height 170.18 cm 06/05/2018 [facility] Weight 160 06/05/2018 [facility] BMI Calculated 55.25 06/05/2018 [facility] Systolic (mm Hg) 121 04/25/2018 [facility] Diastolic (mm Hg) 56 04/25/2018 [facility] Respitory Rate 16 04/25/2018 [facility] Systolic (mm Hg) 120 04/25/2018 [facility] Diastolic (mm Hg) 54 04/25/2018 [facility] Respitory Rate 15 04/25/2018 [facility] Respitory Rate 15 04/25/2018 [facility] Systolic (mm Hg) 121 04/25/2018 [facility] Diastolic (mm Hg) 87 04/25/2018 [facility] Weight 160 04/20/2018 [facility] BMI Calculated 55.25 04/20/2018 [facility] Height 170.18 cm 04/20/2018 [facility] Heart Rate 70 03/18/2016 [facility] Respitory Rate 18 03/18/2016 [facility] Systolic (mm Hg) 140 03/18/2016 [facility] Diastolic (mm Hg) 74 03/18/2016 [facility] Respitory Rate 16 03/18/2016 [facility] Systolic (mm Hg) 108 03/18/2016 [facility] Diastolic (mm Hg) 66 03/18/2016 [facility] Respitory Rate 16 03/18/2016 [facility] Systolic (mm Hg) 125 03/18/2016 [facility] Diastolic (mm Hg) 57 03/18/2016 [facility] Temperature Oral (F) 98.7 F 03/18/2016 [facility] Weight 159.091 03/18/2016 [facility] BMI Calculated 54.93 03/18/2016 [facility] Height 170.18 cm 03/18/2016 [facility] Height 167.64 cm 03/12/2016 [facility] Weight 159.091 03/12/2016 [facility] BMI Calculated 56.61 03/12/2016 [facility] Respitory Rate 20 12/24/2015 [facility] Systolic (mm Hg) 122 12/24/2015 [facility] Diastolic (mm Hg) 55 12/24/2015 [facility] Temperature Oral (F) 97.5 F 12/24/2015 [facility] Heart Rate 70 12/24/2015 [facility] Height 167.64 cm 12/24/2015 [facility] BMI Calculated 57.16 12/24/2015 [facility] Weight 160.625 12/24/2015 [facility] Encounters Location Location Details Encounter Type Encounter Number Reason For Visit Attending Provider ADM Date DC Date Status Source [facility] Day Surgery [id number] Jarek Swenson 12/24/2015 12/25/2015 [facility] Day Surgery [id number] Jarek Swenson 03/18/2016 03/19/2016 [facility] Day Surgery [id number] Jarek Swenson 04/25/2018 04/26/2018 [facility] Day Surgery [id number] Jarek Swenson 06/08/2018 06/09/2018 [facility] Procedures Procedure Code Date Perfomer Comments Source Repair of nerve<sup>1</sup> [id number] 07/24/2005 right first finger [facility] Total knee replacement<sup>2</sup> [id number] 07/24/2004 right [facility] Total knee replacement<sup>3</sup> [id number] 07/24/2003 [facility] Osteotomy and discectomy of cervical spine by anterior approach [id number] 07/24/2000 [facility] Hysterectomy<sup>4</sup> [id number] 07/24/1984 Partial [facility] Bunionectomy<sup>5</sup> [id number] [facility] Assessment and Plan Assessment and Plan Date Source Extracted from:Title: Clinical Document Author: Jarek Swenson MD Date: [...] Breast cancer; Heart disease Allergies Allergies (2) Active Reaction Bicillin L-A rash Chantix agitated Home Medications: Home Medications (26) Active acetaminophen-hydrocodone [...] Clear no auscultation):_ Abdomen (no mass or tenderness):_ deferred Pelvic/Rectal (no mass or tenderness):_ deferred Extremities (no edema or tenderness):_ deferred Neurological (_ intact):_deferred Impressions: _ Diagnosis: -lumbar radiculopathy 82765 Treatment plan:_ bilateral L4-S1 TFESI 06/09/2018 [facility] Extracted from:Title: Clinical Document Author: Jarek Swenson MD Date: 04/25/18 HISTORY AND PHYSICAL EXAMINATION/REVIEW OF SYSTEMS Present Complaint:_ bilat low back buttock and leg pain Past [...] Breast cancer; Heart disease Allergies Allergies (2) Active Reaction Bicillin L-A rash Chantix agitated Home Medications: Home Medications (25) Active acetaminophen-hydrocodone [...] gallop):_ Lungs (_x Abdomen (no mass or tenderness):_ deferred Pelvic/Rectal (no mass or tenderness):_ deferred Extremities (no edema or tenderness):_ deferred Neurological (_ intact):_deferred Impressions: _ Diagnosis: -lumbosacral spondylosis 53546 -lumbar disc degeneration [id number] -lumbar radiculopathy 38799 -lumbago 1783 Treatment plan:_ bialteral L4-5,L5-S1 TFESI 04/26/2018 [facility] Extracted from:Title: Clinical Document Author: Jarek Swenson MD Date: [...] HISTORY AND PHYSICAL EXAMINATION/REVIEW OF SYSTEMS Present Complaint:_ bilateral low back buttock pain Past History:chronic Alcohol [...] Breast cancer; Heart disease Allergies Allergies (2) Active Reaction Bicillin L-A rash Chantix agitated Home Medications: Home Medications (23) Active Abilify [...] mass or tenderness):_deferred Pelvic/Rectal (no mass or tenderness):_ deferred Extremities (no edema or tenderness):_ deferred Neurological (_ intact):_deferred Impressions: _ Diagnosis: -lumbar disc degeneration 442020 -lumbar radiculopathy 78850 Treatment plan:_ bilateral L3-S1 TFESI 03/19/2016 [facility] Plan of Care No Data Provided for This Section Social History Social History Date Source Social History TypeResponse Substance Abuse Use: Current. Type: Marijuana. Recreational Drug Route: Inhaled. Amount: LAST TIME USED 06-07-2018. Frequency: Daily. Exercise 1 Alcohol Current, Type Wine. Frequency: 1-2 times per month. Smoking Status Former smoker; Type: Cigarettes; Exposure to Tobacco Smoke None; Cigarette Smoking Last 365 Days No; Reg Smoking Cessation Counseling No; Tobacco use per day: 20; Started at age: 20.0; 2 entered on: 06/08/18 [id number] 3 years 06/08/2018 [facility] Family History No Data Provided for This Section Advance Directives No Data Provided for This Section Functional Status No Data Provided for This Section
--- OUTSIDE RECORDS SUMMARY | 2019-04-16 13:44 | XMS REPORT | Summary of Care ---
Author Author [facility] Organization [facility] Address Unknown Phone Unavailable Encounter JENNIFER Palacios(DAWIT) [phone] Date(s): 12/24/15 - 12/24/15 [facility] [address] [place] [phone] Discharge Disposition: Home Attending Physician: Jarek Swenson MD Referring Physician: Jarek Swenson MD Vital Signs Most recent to 1 oldest [Reference Range]: Height 167.64 cm (12/24/15 11:12 AM) Temperature Oral 97.5 DegF [96.4-99.1 DegF] (12/24/15 11:45 AM) Blood Pressure 122/55 mmHg [90-140/60-90 mmHg] (12/24/15 11:45 AM) Respiratory Rate 20 BRMIN [14-20 BRMIN] (12/24/15 11:45 AM) Peripheral Pulse 70 bpm Rate [60-100 bpm] (12/24/15 11:45 AM) Weight 160.625 kg (12/24/15 11:12 AM) Body Mass Index 57.16 m2 (12/24/15 11:12 AM) Problem List Condition Effective Dates Status Health Status Informant Depression(Confirmed Active ) Diabetes(Confirmed) Active Hyperlipidemia(Confi Active rmed) Hypertension(Confirm Active ed) Hypothyroid(Confirme Active d) Obesity(Confirmed) Active Scoliosis(Confirmed) Active Sleep Active apnea(Confirmed) Allergies, Adverse Reactions, Alerts Substance Reaction Severity Status Bicillin L-A rash Active Chantix agitated Active Medications Abilify 2 mg oral tablet 2 mg=1 tab, PO, Daily, 0 Refill(s) Start Date: 12/18/15 Status: Ordered acetaminophen-hydrocodone 325 mg-10 mg oral tablet 1 tab, PO, Q6H, 0 Refill(s) Start Date: 12/18/15 Status: Ordered amLODIPine 10 mg oral tablet 10 mg=1 tab, PO, Daily, 0 Refill(s) Start Date: 12/18/15 Status: Ordered Centrum Silver Women's 1 tab, PO, Daily, 0 Refill(s) Start Date: 12/18/15 Status: Ordered Citracal Maximum + D 2 tab, PO, BID, 0 Refill(s) Start Date: 12/18/15 Status: Ordered clonazePAM 1 mg oral tablet 1 mg=1 tab, PO, BID, 0 Refill(s) Start Date: 12/18/15 Status: Ordered Dextrose 50% Syringe 12.5 gm, Route: IVP, Dosing Weight 160.625, kg, ONCE, Start date: 12/24/15 12:09 :00 CDT, Stop date: 12/24/15 12:09:00 CDT Start Date: 12/24/15 Stop Date: 12/24/15 Status: Completed DULoxetine 60 mg oral delayed release capsule 120 mg=2 cap, PO, Daily, 0 Refill(s) Start Date: 12/18/15 Status: Ordered fenofibrate 134 mg oral capsule 134 mg=1 cap, PO, Daily, 0 Refill(s) Start Date: 12/18/15 Status: Ordered Fish Oil 1000 mg oral capsule 1,000 mg=1 cap, PO, TID, 0 Refill(s) Start Date: 12/18/15 Status: Ordered furosemide 20 mg oral tablet 20 mg=1 tab, PO, Daily, PRN swelling, 0 Refill(s) Start Date: 12/18/15 Status: Ordered hydrochlorothiazide-lisinopril 25 mg-20 mg oral tablet 1 tab, PO, Daily, 0 Refill(s) Start Date: 12/18/15 Status: Ordered Lantus 25 unit, SUB-Q, BID, 0 Refill(s) Start Date: 12/18/15 Status: Ordered levothyroxine 200 mcg (0.2 mg) oral tablet 200 microgram=1 tab, PO, Daily, 0 Refill(s) Start Date: 12/18/15 Status: Ordered Lidoderm 5% topical film (patch) 1 patch, TOP, Daily, 0 Refill(s) Start Date: 12/18/15 Status: Ordered Lyrica 100 mg oral capsule 100 mg=1 cap, PO, BID, 0 Refill(s) Start Date: 12/18/15 Status: Ordered metFORMIN 1000 mg oral tablet 1,000 mg=1 tab, PO, BID, 0 Refill(s) Start Date: 12/18/15 Status: Ordered metoprolol 100 mg oral tablet, extended release 100 mg=1 tab, PO, Daily, 0 Refill(s) Start Date: 12/18/15 Status: Ordered NovoLOG 0.5 unit, SUB-Q, TID-Before Meals, 0 Refill(s) Start Date: 12/18/15 Status: Ordered Prilosec 20 mg oral delayed release capsule 20 mg=1 cap, PO, Daily, 0 Refill(s) Start Date: 12/18/15 Status: Ordered Probiotic Formula oral capsule 1 cap, PO, Daily, 0 Refill(s) Start Date: 12/18/15 Status: Ordered tizanidine 4 mg oral capsule 8 mg=2 cap, PO, QID, 0 Refill(s) Start Date: 12/18/15 Status: Ordered trazodone 100 mg oral tablet 100 mg=1 tab, PO, Bedtime, 0 Refill(s) Start Date: 12/18/15 Status: Ordered Victoza 18 mg/3 mL subcutaneous injection SUB-Q, Daily, 0 Refill(s) Start Date: 12/18/15 Status: Ordered Results No data available for [...] 1none 2quit 3 years Assessment and Plan No data available for this section
--- OUTSIDE RECORDS SUMMARY | 2019-04-16 13:44 | XMS REPORT ---
Author Author [facility] Address Unknown Phone Unavailable Care Team Providers Care Personnel Manager Name Role Phone Enedelia ROSE Unavailable Unavailable Cam ROCHA Unavailable Unavailable Problems This patient has no known problems. Allergies, Adverse Reactions, Alerts This patient has no known allergies or adverse reactions. Medications This patient has no known medications. Results Test Description Test Time Test Comments Text Results Atomic Results Result Comments US GUIDANCE FOR VASCULAR ACCES 2018-03-22 17:36:00 [place] [address] Patient Name: AKSHAT HAYS MR #: [id number] : 1950 Age/Sex: 67/F Req #: [id number] Adm Physician: Ordered by: MANISHA POTTS MD Report #: [id number] Location: [place] Room/Bed: Procedure: [id number] US/US GUIDANCE FOR VASCULAR ACCES Exam Date: Exam Time: REPORT STATUS: Signed PROCEDURE: US GUIDANCE FOR VASCULAR ACCESS COMPARISON: None. INDICATIONS: Lack of IV access FINDINGS: Ultrasound evaluation of potential access sites was performed. After successfully a identifying a patent vessel, US guidance was used to puncture the vein. A permanent recording was created for the patient record. CONCLUSION: Successful IV access by Ultrasound guidance. Manisha Potts M.D. Dictated by: Manisha Potts M.D. on 03/22/2018 at 17:36 Electronically approved by: Manisha Potts M.D. on 03/22/2018 at 17:36 Dictated By: MANISHA POTTS MD 35 Transcribed By: PJ on 03/22/181735 COPY TO: MANISHA POTTS MD CT ABDOMEN/PELVIS W 2018-03-13 10:47:00 [place] [address] Patient Name: AKSHAT HAYS MR #: [id number] : 1950 Age/Sex: 67/F Req #: [id number] Adm Physician: Ordered by: DANA ROSE MD Report #: [id number] Location: [place] Room/Bed: Procedure: [id number] CT/CT ABDOMEN/PELVIS W Exam Date: 03/13/18 Exam Time: 0946 REPORT STATUS: Signed PROCEDURE: CT ABDOMEN AND PELVIS WITH CONTRAST TECHNIQUE: The abdomen and pelvis were scanned utilizing a multidetector helical scanner from the diaphragm to the lesser trochanter after the IV administration of 100 cc Isovue 370 and the oral demonstration of water. Coronal and sagittal multiplanar reformations were obtained. COMPARISON: 04/04/2017. INDICATIONS: ABDOMEN PAIN FINDINGS: LOWER THORAX: Unchanged mild right hemidiaphragmatic elevation with atelectasis of the lower lobe.. HEPATOBILIARY: Hepatic parenchyma is diffusely hypoattenuating compatible with steatosis. No focal hepatic lesion or intrahepatic biliary ductal dilatation. Small radiopaque gallstones are again noted. No gallbladder wall thickening or pericholecystic inflammation. SPLEEN: Multiple calcified splenic granulomata. No splenomegaly. PANCREAS: No focal masses or ductal dilatation. ADRENALS: No adrenal nodules. KIDNEYS/URETERS: Subcentimeter hypoattenuating lesions in the left kidney are too small to further characterize but likely represent small cysts. No hydronephrosis or calculi. PELVIC ORGANS/BLADDER: Urinary bladder is unremarkable. Uterus and ovaries are nonvisualized. No adnexal mass. PERITONEUM / RETROPERITONEUM: No ascites or pneumoperitoneum. Evaluation of the pelvis is limited secondary to beam hardening artifact from patient contact with the scanning gantry due to body habitus. LYMPH NODES: No pelvic sidewall, retroperitoneal, or mesenteric lymphadenopathy. VESSELS: Abdominal aorta, major branch vessels, and iliac arterial systems are patent with mild atherosclerotic calcification. No aneurysmal dilatation. GI TRACT: The large bowel shows no evidence of distention or wall thickening. Gas and fecal material are noted throughout. The appendix is not definitively identified and may have been resected. No right lower quadrant inflammatory change. No small bowel dilatation to suggest obstruction. BONES AND SOFT TISSUES: No osseous destructive lesions. Multilevel degenerative disc changes and facet arthropathy of the lumbar spine. Soft tissue calcified injection granulomata along the right flank. Small fat-containing umbilical hernia. IMPRESSION: No acute intra-abdominal or pelvic CT abnormalities. Cholelithiasis without findings of acute cholecystitis. Hepatic steatosis. Dictated by: Danielle Langford M.D. on 03/13/2018 at 10:47 Electronically approved by: Danielle Langford M.D. on 03/13/2018 at 10:47 Dictated By: DANIELLE LANGFORD MD [id number] Transcribed By: PJ on 03/13/18 1047 COPY TO: DANA ROSE MD CT ABDOMEN/PELVIS W [place] [address] Patient Name: AKSHAT HAYS MR #: [id number] : 1950 Age/Sex: 66/F Req #: [id number] Adm Physician: Ordered by: THU WESTBROOK HEAD PAPER TESTER Report #: [id number] Location: ER Room/Bed: Procedure: [id number] CT/CT ABDOMEN/PELVIS W Exam Date: 04/04/17 Exam Time: 1 REPORT STATUS: Signed EXAM: CT ABDOMEN AND PELVIS with IV CONTRAST DATE: 04/04/2017 7:05 PM Time stamp on Exam: 20 to 24 hours INDICATION: Abdominal pain, diarrhea COMPARISON: None TECHNIQUE: The abdomen and pelvis were scanned using a multidetector helical scanner. Coronal and sagittal reformations were obtained. Routine protocol performed. IV Contrast: 100 cc Isovue-370 Oral Contrast: None CTDIvol has been reviewed. It is below the limits set by the Radiation Protocol Committee (RPC). FINDINGS: LOWER THORAX: No consolidations LIVER: No masses BILIARY: The gallbladder is unremarkable. No ductal dilation. SPLEEN: Calcified granulomas. PANCREAS: No masses ADRENALS: No nodules KIDNEYS: Symmetric perfusion. No enhancing masses. No hydronephrosis. GI TRACT: No distention, wall thickening or evidence of obstruction. VESSELS: Unremarkable PERITONEUM/RETROPERITONEUM: No free air or fluid LYMPH NODES: No lymphadenopathy REPRODUCTIVE ORGANS: The uterus and ovaries are not visualized. BLADDER: Unremarkable SOFT TISSUES: Tiny fat-containing umbilical hernia. BONES: No suspicious bone lesions. IMPRESSION: No CT findings to explain patient's symptoms. Signed by: Dr. Krzysztof Grajeda M.D. on 04/04/2017 11:10 PM Dictated By: KRZYSZTOF GRAJEDA MD [id number] Transcribed By: VIANNEY on 04/04/172309 COPY TO: THU WESTBROOK NP
--- NOTE | 2019-04-16 15:34 | NUR ---
NOTIFIED LAB FOR BLOOD DRAW.
[2019-04-16 16:12] LABS: BASOPHILS # (AUTO) 0.1 (0.0-0.1); BASOPHILS % 0.5 % (0.0-1.0); EOSINOPHILS # (AUTO) 0.3 (0.0-0.4); EOSINOPHILS % 3.4 % (0.0-6.0); HEMATOCRIT 42.2 % (34.2-44.1); LYMPHOCYTES # (AUTO) 4.5 (1.0-3.2); LYMPHOCYTES % 44.8 % (18.0-39.1); MEAN CORPUSCULAR HEMOGLOBIN 29.4 pg (28-32); MEAN CORPUSCULAR HGB CONC 33.2 g/dL (31-35); MEAN CORPUSCULAR VOLUME 88.5 fL (81-99); MONOCYTES # (AUTO) 0.8 (0.2-0.8); MONOCYTES % 7.7 % (4.4-11.3); NEUTROPHILS # (AUTO) 4.3 (2.1-6.9); NEUTROPHILS % 43.3 % (38.7-80.0); PLATELET COUNT 268 x10e3/uL (140-360); RED BLOOD COUNT 4.77 x10e6/uL (3.6-5.1); RED CELL DISTRIBUTION WIDTH 13.8 % (11.7-14.4)
[2019-04-16 16:30] LABS: ALANINE AMINOTRANSFERASE 23 IU/L (0-55); ALBUMIN 3.9 g/dL (3.5-5.0); ALBUMIN/GLOBULIN RATIO 1.1 (0.8-2.0); ALKALINE PHOSPHATASE 36 IU/L (40-150); ANION GAP 11.7 mmol/L (8-16); BLOOD UREA NITROGEN 17 mg/dL (7-26); BUN/CREATININE RATIO 18 (6-25); CALCIUM 10.2 mg/dL (8.4-10.2); CARBON DIOXIDE 29 mmol/L (22-29); CHLORIDE 100 mmol/L (98-107); CREATINE KINASE 118 IU/L (29-168); CREATININE, SERUM 0.97 mg/dL (0.57-1.11); EST GLOMERULAR FILTRATION RATE 57 ML/MIN (60-); GLUCOSE 84 mg/dL (74-118); POTASSIUM 3.7 mmol/L (3.5-5.1); SODIUM 137 mmol/L (136-145)
--- NOTE | 2019-04-16 17:02 | Diagnostic Imaging Report ---
LEFT SHOULDER - 2 Image(s) HISTORY: Pain COMPARISON: None available. FINDINGS: Bones: No acute displaced fracture. No aggressive osseous lesion. Joints: Moderate to severe degenerative changes of the glenohumeral joint with prominent marginal osteophytosis and mild inferior subluxation of the humeral head. Minimal degenerative changes of the acromioclavicular joint. Soft tissues: The soft tissues appear unremarkable. IMPRESSION: 1. No acute radiographic abnormality. 2. Osteoarthrosis of the glenohumeral joint greater than the acromion and clavicle or joint. 3. Interior subluxation of the humeral head may be secondary to laxity/instability of the glenohumeral joint. Signed by: Dr. Erick Taylor D.O., M.M.M. on 04/16/2019 4:59 PM
--- NOTE | 2019-04-16 17:08 | Diagnostic Imaging Report ---
EXAMINATION: CHEST SINGLE (PORTABLE) INDICATION: Shoulder pain COMPARISON: Concurrently performed left shoulder radiograph. FINDINGS: LINES/TUBES:EKG leads overlie the chest. LUNGS:The lung volumes are low. No focal consolidation or pulmonary edema. Mild bibasilar subsegmental atelectasis. Elevation of the right hemidiaphragm. PLEURA:No pleural effusion or pneumothorax. MEDIASTINUM:The cardiomediastinal silhouette appears normal in size and shape. BONES/SOFT TISSUES:No acute osseous injury. Partial visualization of cervical spine fusion hardware. For detailed findings related to the left shoulder, please refer to the concurrently reported dedicated left shoulder radiographs. ABDOMEN:No free air under the diaphragm. IMPRESSION: Low lung volumes. Mild bibasilar subsegmental atelectasis with no focal pneumonia or pulmonary edema. For detailed findings related to the left shoulder, please refer to the concurrently reported dedicated left shoulder radiographs. Signed by: Keena Wade MD on 04/16/2019 5:05 PM
[2019-04-16 18:01] VITALS: BP 121/52
[2019-04-16 18:24] LABS: EOSINOPHILS % (MANUAL) 3 % (0-7); LYMPHOCYTES % (MANUAL) 33 % (19-48); MONOCYTES % (MANUAL) 3 % (3.4-9.0); NEUTROPHILS % (MANUAL) 48 % (40-74); PLATELET ESTIMATE ADEQUATE; PLATELET MORPHOLOGY COMMENT FEW LARGE; RBC MORPHOLOGY COMMENT NORMAL; STOMATOCYTES SLIGHT
== END 2019-04-16 18:02 | disposition home or self-care (01) ==
LOC: ER 13:39
DX: M19.012 Primary osteoarthritis, left shoulder (principal); I48.91 Unspecified atrial fibrillation; E11.9 Type 2 diabetes mellitus without complications; I10 Essential (primary) hypertension; F32.9 Major depressive disorder, single episode, unspecified; M54.9 Dorsalgia, unspecified; Z79.01 Long term (current) use of anticoagulants; Z79.4 Long term (current) use of insulin
CPT/HCPCS: 36415; 71045; 80053; 82550; 82553; 82948; 84484; 85025; 93005; 99284

== ENCOUNTER 2019-06-14 18:49 | Emergency (ER) | payer MEDICARE ==
[~2019-06-14] VITALS: Ht 167.6 cm; Wt 142.9 kg
== END 2019-06-14 20:08 | disposition home or self-care (01) ==
LOC: FSED 18:49
DX: S61.411A Laceration without foreign body of right hand, initial encounter (principal); W45.8XXA Other foreign body or object entering through skin, initial encounter; Y92.008 Other place in unspecified non-institutional (private) residence as the place of occurrence of the external cause; I10 Essential (primary) hypertension; E11.9 Type 2 diabetes mellitus without complications; I48.91 Unspecified atrial fibrillation
CPT/HCPCS: 99282